=== PATIENT | female | born 1985 | race Caucasian/White ===

== ENCOUNTER 2023-09-01 08:05 | Observation (INO) | payer OTHER, SELFPAY ==
[2023-09-01] VITALS (8 sets, daily range): BP systolic 118–145; BP diastolic 72–83; PULSE 60–99; RESP 14–18; TEMP 36.2–36.6; O2SAT 98–100; BMI 26.8; BMI 26.2
--- NOTE | 2023-09-01 08:21 | CT_ITS ---
STUDY: CT ABDOMEN AND PELVIS WITH CONTRAST REASON FOR EXAM: Female, 38 years old. 3 day history of epigastric pain and abdominal bloating. RADIATION DOSAGE (If Supplied By Facility): CTDIvol = ( 12.29 ) mGy, DLP = ( 759.22 ) mGycm TECHNIQUE: Transaxial images were obtained from the dome of the diaphragm to the symphysis pubis without oral contrast. IV 100mL Isovue-300 was administered. Sagittal and coronal images were reconstructed. Individualized dose optimization techniques were used for this CT. COMPARISON: None. FINDINGS: The visualized lung bases are unremarkable. The visualized portions of the heart are within normal limits. There is a 4.5 mm well-defined hypodensity in the medial aspect of the dome of the right lobe liver suggestive of a small cyst. Similar appearing hypodensity is seen in the medial aspect of the right lobe of the liver measuring 8.4 mm. Is also evidence of a 9.2 mm cyst in the left lobe of the liver. There is a 1.1 cm cyst in the inferior aspect of the right lobe of the liver. Multiple gallstones are seen in a contracted gallbladder. There is gallbladder wall thickening. Normal spleen. Normal pancreas. Normal bilateral adrenal glands. Normal right kidney. There is a 1.1 cm x 0.7 cm nonobstructive calculus in the lower pole calyx of the left kidney. 1.2 cm cyst in the mid posterior aspect of the left kidney. Normal visualized stomach. Normal small intestine. Normal colon. The appendix is visualized and appears normal. Normal abdominal aorta. Normal inferior vena cava. Normal retroperitoneum. Normal urinary bladder. Normal abdominal wall. Normal osseous structures. CT/Abdomen/Pelvis W IV Cont ONLY IMPRESSION: There are multiple small hepatic cysts. Contracted stone filled gallbladder. 1.1 cm x 0.7 cm nonobstructive calculus in the lower pole calyx of the left kidney. Electronically Signed: Trino Dia MD at 9:54 EDT ,
--- NOTE | 2023-09-01 08:44 | ED.VIS.GI ---
HPI HPI - GI History of Present Illness Chief Complaint: Abd Pain Narrative Narrative: 38-year-old female past medical history of POTS, presents with epigastric pain that she has had over the last 3 days. She states that she does not normally eat ice cream, but Friday she and her went to the dairy at, and had ice cream. Shortly thereafter, she had epigastric pain and nausea but no vomiting. She states that radiated downward somewhat. The pain was intense. It resolved after approximately 30 to 40 minutes. However, the following day she was still nauseated. While she was able to eat today, she is having problems with reported celsa colored stool from a bowel movement this morning. It was very light. She denies any right upper quadrant pain, but states that she was drinking a lot of fluids to keep up with her POTS because she noticed she had dark urine on Friday, and she usually has clear to light yellow urine. Although she drank a large amount of water, her urine was still dark yellow. She denies any other symptoms, no exacerbating or alleviating factors. No prior abdominal surgeries. [facility] Allergy/AdvReac Type Severity Reaction Status Date / Time No Known Allergies Allergy Verified 09/01/23 08:09 Social History Smoking Status: Never smoker ROS ROS ED ROS Narrative Constitutional: No fever, no chills. HEENT: No sore throat. No neck pain. No loss of vision. No rhinorrhea. Cardiovascular: No chest pain. No palpitations. No pedal edema. Respiratory: No cough, no shortness of breath. Abdominal: Positive epigastric abdominal pain. Positive nausea. No vomiting. Light to celsa colored stools today. Genitourinary: No dysuria. No hematuria. Dark urine on Friday, still appears concentrated to patient. Musculoskeletal: No myalgias. No arthralgias. Neurologic: No headaches. No dizziness. No lightheadedness. Skin: No rash. No change in color. Psychiatric: No depression. No anxiety. EXAM Physical Exam Narrative Exam Narrative: Afebrile. Vital signs noted. HEENT: Normocephalic. Atraumatic. PERRL, EOMI. Neck soft and supple. No point tenderness or step off. Cardiovascular: Regular rate and rhythm. No murmurs, rubs, or gallops appreciated. Respiratory: No tachypnea. Lungs clear to auscultation bilaterally. Gastrointestinal: Abdomen soft, minimal tenderness in epigastrium with normoactive bowel sounds. No rebound or guarding. Negative Pimentel sign. Neurological: Awake. Alert. Nonfocal, nonlateralizing. Skin: No rash. Normal color. No pallor. Musculoskeletal: No pedal edema. Full range of motion extremities. Const Vital Signs: 09/01/23 08:07 09/01/23 10:06 09/01/23 12:00 Temperature 97.2 F L Temperature Source Temporal Pulse Rate 99 75 68 Respiratory Rate 18 14 14 Blood Pressure 127/81 H 127/77 H 137/72 H Blood Pressure Mean 96 93 93 Pulse Ox 100 98 98 Oxygen Delivery Method Room Air Room Air MDM MDM MDM Narrative Medical decision making narrative: In the differential diagnosis is pancreatitis versus gastritis versus lactose intolerance versus nonspecific abdominal pain. I have low suspicion for bowel obstruction as she has not had previous surgeries. Additionally, her pain is not in the right upper quadrant so I have low suspicion for cholecystitis or gallstone pancreatitis. Comprehensive workup was pursued. She was bolused normal saline and administered ondansetron for continued nausea. I do feel CT imaging would be more advantageous than gallbladder ultrasound to help rule out other pathology such as bowel obstruction. Laboratories will be obtained in the form of CBC, CMP, and lipase. I reviewed her laboratory work and she has normal white count of 6.8, hemoglobin normal at 14.5, hematocrit 42.7, platelet count 159. Review of her CMP shows normal sodium of 140, potassium normal at 3.7, chloride slightly elevated at 111 which I think is nonspecific, glucose elevated at 113 with a normal anion gap of 6. Of significance is her LFT portion of the CMP which shows total bilirubin elevated at 1.6 with AST of 317, ALT of 855, and alkaline phosphatase normal at 96. Serum is negative and lipase is normal at 39 so I have low suspicion for pancreatitis. Urinalysis obtained and reviewed and is negative for infection. I do not feel antibiotics are indicated. I reviewed the CT radiology report which shows a contracted gallbladder with gallbladder wall thickening, and gallstones contained within, but otherwise unremarkable except for cysts throughout the liver. I do not feel that those are the cause of her elevated LFTs, however. Because of the elevated AST and ALT and total bilirubin with a thickened gallbladder wall and gallstones, ultrasound of the right upper quadrant was obtained. I reviewed the radiology report which shows normal common bile duct of 5.8 mm. Gallbladder wall is slightly thickened at 3.2 mm. I discussed the patient with the [employer] SUPERINTENDENT who relayed messages to Dr. Howell. He has sent his MARLENI, Admify, to the emergency department to evaluate her. I received a phone call stating that they would like her admitted to Dr. Howell's service, and they will take care of any other orders. This was relayed to the patient, and she acknowledges an understanding. Disposition is admit to the medical surgical floor in stable condition. History & Record Review Discussion w/independent historian: Patient and Family () Lab Data Attestation: I reviewed the patient's lab results. Labs: Laboratory Results - last 24 hr 09/01/23 09/01/23 08:40 08:45 WBC 6.8 RBC 4.71 Hgb 14.5 Hct 42.7 MCV 90.7 MCH 30.8 MCHC 34.0 RDW Std Deviation 41.5 RDW Coeff of Delma 12.5 Plt Count 159 MPV 9.5 Immature Gran % (Auto) 0.400 Neut % (Auto) 74.7 H Lymph % (Auto) 16.7 L [place] % (Auto) 6.5 Eos % (Auto) 1.3 Baso % (Auto) 0.4 Absolute Neuts (auto) 5.0 Absolute Lymphs (auto) 1.13 Nucleated RBC % 0 Sodium 140 Potassium 3.7 Chloride 111 H Carbon Dioxide 23.0 Anion Gap 6 BUN 10 Creatinine 0.87 Estim Creat Clear Calc 93.20 Est GFR (MDRD) Af Amer 93 Est GFR (MDRD) Non-Af 77 BUN/Creatinine Ratio 11.5 Glucose 113 H Calcium 8.9 Total Bilirubin 1.60 H AST 317 H ALT 855 H Alkaline Phosphatase 96 Total Protein 7.2 Albumin 3.8 Globulin 3.4 Albumin/Globulin Ratio 1.1 Lipase 39 Serum , Qual NEGATIVE Urine Color Yellow Urine Clarity Clear Urine pH 6.5 Ur Specific [place] 1.010 Urine Protein Negative Urine Glucose (UA) Normal Urine Ketones Negative Urine Occult Blood Negative Urine Nitrite Negative Urine Bilirubin Negative Urine Urobilinogen Normal Ur Leukocyte Esterase Negative Urine RBC 0 SEEN Urine WBC 0 SEEN Ur Squamous Epith Cells 0-5 SEEN Urine Bacteria 0 SEEN Urine Mucus 0 SEEN Radiography Diagnostic Testing: Clinical Impression(s) from Imaging Studies Abdomen/Pelvis CT 09/01/23 08:21 IMPRESSION: There are multiple small hepatic cysts. Contracted stone filled gallbladder. 1.1 cm x 0.7 cm nonobstructive calculus in the lower pole calyx of the left kidney. Electronically Signed: Trino Dia MD at 9:54 EDT , Abdomen Ultrasound 09/01/23 09:20 IMPRESSION: Multiple small cysts are seen in both the right and left lobes of the liver. Multiple gallstones and slightly thickened gallbladder wall. Electronically Signed: Trino Dia MD at 12:05 EDT , Management Discussion w/another healthcare provider: Conference Interpreter (Dr. Howell/Emily YUEN) Discharge Plan Triage Chief Complaint: Abd Pain ED Provider: Karan Agosto Dx/Rx/DC Orders Primary Care Provider: Libia Villagran NP Referrals: Libia Villagran NP, DIRECTOR OF HUMAN RESOURCES-C [Primary Care Provider] -
[2023-09-01] MEDS: Ondansetron 4 MG/2 ML Vial IV (08:50)
[2023-09-01] MEDS: 0.9% Normal Saline (1000mL) 1,000 ML 1000 ML IV (08:50)
[2023-09-01 08:55] LABS: Bacteria 0 SEEN /hpf (None Seen); Mucous, Urine 0 SEEN /hpf (<or=2+); Red Blood Cells-Urine 0 SEEN /hpf (0-5); White Blood Cells 0 SEEN /hpf (0-5)
[2023-09-01 08:56] LABS: Absolute Lymphocyte Count 1.13 X10^3/uL (0.83-4.51); Basophil# 0.03 X10^3/uL; Basophil% 0.4 % (0-1); Eosinophil# 0.09 X10^3/uL; Eosinophils% 1.3 % (0-5); Hematocrit 42.7 % (37-47); Hemoglobin 14.5 g/dL (12.0-15.0); Lymphocyte # 1.13 X10^3/ul (0.83-4.51); Lymphocyte % 16.7 % (19-41); Mean Corpuscular Hgb 30.8 pg (27.0-32.0); Mean Corpuscular Volume 90.7 fL (81-99); Mean Platelet Vol. 9.5 fl (6.2-12.0); Monocyte# 0.44 X10^3/uL; Monocyte% 6.5 % (0-10); NRBC Flagged by Analyzer 0 % (0-5); Neutrophil # 5.03 X10^3/uL (2.7-7.7); Neutrophil % 74.7 % (47-70); Platelet Count 159 K/mm3 (150-450); RBC Distribution Width CV 12.5 % (11.6-14.6); RBC Distribution Width SD 41.5 fl (35.1-43.9); Red Blood Count 4.71 M/mm3 (4.2-5.4); White Blood Count 6.8 K/mm3 (4.4-11.0)
[2023-09-01 09:05] LABS: Internal QC Validated? YES +Cl - CLEAR BKGD; Pregnancy, Serum, hCG Quali. NEGATIVE Negative
[2023-09-01 09:15] LABS: Color, Urine Yellow (Yellow); Glucose, Dipstick Normal (Normal); Ketone-Dipstick Negative (Negative); Leukocyte Esterase-Dipstick Negative /ul (Negative); Nitrite-Dipstick Negative (Negative); Occult Blood-Urine Negative /ul (Negative); Protein-Dipstick Negative (Negative); Urine Bilirubin Dipstick Negative (Negative); Urine Clarity Clear (Clear); Urine Urobilinogen Normal (Normal); Urine pH 6.5 (5.0 - 8.0)
[2023-09-01 09:17] LABS: ALB/GLOB Ratio 1.1 RATIO (0.9-2.4); AST(SGOT) 317 U/L (15-37); Alanine Aminotransfer ALT/SGPT 855 U/L (13-56); Albumin, Serum 3.8 g/dL (3.2-5.0); Alkaline Phosphatase 96 U/L (45-117); Anion Gap 6 (5-15); BUN 10 mg/dL (7-18); BUN/Creat Ratio 11.5 RATIO (10-20); Calcium,Total 8.9 mg/dL (8.5-10.1); Chloride 111 mmol/L (98-107); Creatinine, Serum 0.87 mg/dL (0.55-1.02); EST Glomerular Filtration Rate 77 mL/min (>60); Est Glom Filt Rate - Afr Amer 93 mL/min (>60); Globulin 3.4 g/dL (2.2-4.2); Glucose 113 mg/dL (74-106); Lipase 39 U/L (13-75); Potassium 3.7 mmol/L (3.5-5.1); Protein, Total 7.2 g/dL (6.4-8.2); Sodium Level 140 mmol/L (136-145)
--- NOTE | 2023-09-01 09:20 | US_ITS ---
STUDY: ABDOMINAL ULTRASOUND - RIGHT UPPER QUADRANT REASON FOR VISIT: Female, 38 years old Elevated LFTs TECHNIQUE: Ultrasound evaluation of the right upper quadrant was performed with real-time and static ellison-scale imaging. TECHNICAL QUALITY: Adequate. COMPARISON: Comparison is made with prior CT scan abdomen and pelvis done earlier today. FINDINGS: Liver: The liver measures 14.4 cm. There is normal echogenicity of the liver. The bile ducts are within normal limits. There is hepatic color flow. The direction of portal flow is hepatopetal. Multiple small cysts are seen. The largest measures 1.3 cm x 1.2 cm x 0.9 cm. Gallbladder: Normal distended gallbladder. The gallbladder wall is slightly thickened and measures 3.2 mm. There is a negative sonographic Pimentel''s sign. There is no pericholecystic fluid. There are multiple echogenic structures within the gallbladder, consistent with multiple gallstones. Common Bile Duct (C.B.D.): The common bile duct measures 5.8 mm. Pancreas: Normal size of the head, body and tail of the pancreas. There is normal echogenicity of the pancreas. There is no demonstrated pancreatic mass or cyst. Right Kidney: Normal size of the right kidney. The right kidney measures 11.9 cm x 4.3 cm x 5.1 cm. Normal renal cortex. The right cortex measures 1.4 cm. There is no demonstrated renal mass or cyst. There is no right hydronephrosis. US/Abdomen Limited IMPRESSION: Multiple small cysts are seen in both the right and left lobes of the liver. Multiple gallstones and slightly thickened gallbladder wall. Electronically Signed: Trino Dia MD at 12:05 EDT ,
[2023-09-01 09:37] LABS: Squamous Epithelial Cells - UA 0-5 SEEN /hpf (5-10)
--- NOTE | 2023-09-01 12:32 | ED.RN ---
Dr Howell staff called from surgery. He asked if we could call the office and see if Emily could see the patient. Message was left.
--- NOTE | 2023-09-01 13:37 | EKG12_ITS ---
Test Reason : PRE OP Blood Pressure : / mmHG Vent. Rate : 071 BPM Atrial Rate : 071 BPM P-R Int : 134 ms QRS Dur : 078 ms QT Int : 390 ms P-R-T Axes : 064 020 057 degrees QTc Int : 423 ms Normal sinus rhythm Normal ECG Confirmed by Giovany Elizabeth ([id number]), newspaper managing editor LIAM GODOY ([id number]) on 09/02/2023 1:44:30 PM Referred By: Confirmed By:Giovany Elizabeth
--- NOTE | 2023-09-01 13:38 | HP.PCM_ITS ---
HPI - General General Date of Admission: 09/01/23 Chief Complaint: Epigastric pain HPI Narrative VERNA HASTINGS, is a 38 F who presents with 2 day history of abdominal pain and change in bowel habits. Patient states she went for ice cream on Friday evening around 6:00 pm with her . She notes approximately 1 hour after consumption, she had severe epigastric pain, which lasted approximately 30 minutes. She notes weakness, bloating and nausea associated with her abdominal pain. She is unsure if the pain radiated to either side of her abdomen. She states feeling unwell after the intense pain resolved. She notes on Friday, she had dale-colored urine. She noted her bowel movement this morning was light ellison/celsa colored, which concerned her and she proceeded to the ED. Patient continues to note bloating especially with eating. She notes intermittent nausea. Patient notes she had similar symptoms last Fall. She notes those symptoms were more mild in nature and she was never tested for gallbladder disease. Patient has a history of POTS syndrome. She notes paying particular attention to hydration and urine color. When she saw her urine was dale in color, this alarmed her that something was not right. She notes being very good at keeping herself hydrated. She does follow with a neurologist yearly. She is to follow-up with him next week. She notes being on a Gluten-free diet. She denies celiac disease, lactose intolerance or other digestive disorders. RUQ u/s completed in the ED demonstrated multiple gallstones with thickened gallbladder wall. Normal CBD. Liver enzymes: T Bili 1.60, AST 317, ALT 855. WBC 6.8. Neut 74.4. [facility] Medical History (Updated 09/01/23 @ 14:09 by Natasha Molina) POTS (postural orthostatic tachycardia syndrome) Home Medications ivabradine 5 mg tablet (Corlanor) 5 mg PO DAILY POTS 09/01/23 [History Last Taken Unknown] montelukast 10 mg tablet 10 mg PO QHS daily 09/01/23 [History Last Taken Unknown] Allergy/AdvReac Type Severity Reaction Status Date / Time No Known Allergies Allergy Verified 09/01/23 08:09 Surgical History (Updated 09/01/23 @ 14:09 by Natasha Molina) Lefor teeth removed Social History Smoking Status: Never smoker ROS Constitutional Constitutional: Reports systems reviewed and no addt'l complaints, except as documented Eyes Eyes: Reports systems reviewed and no addt'l complaints, except as documented ENT HEENT: Reports systems reviewed and no addt'l complaints, except as documented Cardiovascular Cardiovascular: Reports systems reviewed and no addt'l complaints, except as documented Respiratory/Chest Respiratory/Chest: Reports systems reviewed and no addt'l complaints, except as documented Gastrointestinal Gastrointestinal: Reports systems reviewed and no addt'l complaints, except as documented Genitourinary Genitourinary: Reports systems reviewed and no addt'l complaints, except as documented Musculoskeletal Musculoskeletal: Reports systems reviewed and no addt'l complaints, except as documented Integumentary Integumentary: Reports systems reviewed and no addt'l complaints, except as documented Neurologic Neurologic: Reports systems reviewed and no addt'l complaints, except as documented Psychiatric Psychiatric: Reports systems reviewed and no addt'l complaints, except as documented Endocrine Endocrinology: Reports systems reviewed and no addt'l complaints, except as documented Hematologic/Lymphatic Hematologic/Lymphatic: Reports systems reviewed and no addt'l complaints, except as documented Allergic/Immunologic Allergic/Immunologic: Reports systems reviewed and no addt'l complaints, except as documented Vital Signs Vital Signs Vital Signs: 09/01/23 08:07 09/01/23 10:06 09/01/23 12:00 Temperature 97.2 F L Temperature Source Temporal Pulse Rate 99 75 68 Respiratory Rate 18 14 14 Blood Pressure 127/81 H 127/77 H 137/72 H Blood Pressure Mean 96 93 93 Pulse Ox 100 98 98 Oxygen Delivery Method Room Air Room Air Weight Weight: 171 lb 1.6 oz Body Mass Index (BMI) 26.8 Physical Exam Const alert, oriented x3 and no apparent distress HEENT normocephalic and head/scalp atraumatic Eyes PERRL and EOMs intact bilaterally Neck full ROM Lymph Lymphatic: no lymphadenopathy noted Resp normal respiratory effort and clear to auscultation bilaterally Cardio regular rate and regular rhythm GI GI Narrative: Abdomen- soft, tenderness in the RUQ/epigastric region. Positive Pimentel's sign. No rebound tenderness or guarding. Auscultation: normoactive bowel sounds no CVA tenderness Back/Spine no CVA tenderness Extremity normal to inspection Skin no rashes or lesions noted Neuro no focal motor deficits and no sensory deficits noted Psych mental status grossly normal, thought process normal and cooperative Results Lab / Micro Data 09/01/23 08:40 09/01/23 08:40 Labs: Laboratory Results - last 24 hr 09/01/23 08:40: WBC 6.8, RBC 4.71, Hgb 14.5, Hct 42.7, MCV 90.7, MCH 30.8, MCHC 34.0, RDW Std Deviation 41.5, RDW Coeff of Delma 12.5, Plt Count 159, MPV 9.5, Immature Gran % (Auto) 0.400, Neut % (Auto) 74.7 H, Lymph % (Auto) 16.7 L, [place] % (Auto) 6.5, Eos % (Auto) 1.3, Baso % (Auto) 0.4, Absolute Neuts (auto) 5.0, Absolute Lymphs (auto) 1.13, Nucleated RBC % 0, Sodium 140, Potassium 3.7, Chloride 111 H, Carbon Dioxide 23.0, Anion Gap 6, BUN 10, Creatinine 0.87, Estim Creat Clear Calc 93.20, Est GFR (MDRD) Af Amer 93, Est GFR (MDRD) Non-Af 77, BUN/Creatinine Ratio 11.5, Glucose 113 H, Calcium 8.9, Total Bilirubin 1.60 H, AST 317 H, ALT 855 H, Alkaline Phosphatase 96, Total Protein 7.2, Albumin 3.8, Globulin 3.4, Albumin/Globulin Ratio 1.1, Lipase 39, Serum , Qual NEGATIVE 09/01/23 08:45: Urine Color Yellow, Urine Clarity Clear, Urine pH 6.5, Ur Specific [place] 1.010, Urine Protein Negative, Urine Glucose (UA) Normal, Urine Ketones Negative, Urine Occult Blood Negative, Urine Nitrite Negative, Urine Bilirubin Negative, Urine Urobilinogen Normal, Ur Leukocyte Esterase Negative, Urine RBC 0 SEEN, Urine WBC 0 SEEN, Ur Squamous Epith Cells 0-5 SEEN, Urine Bacteria 0 SEEN, Urine Mucus 0 SEEN Imaging Radiology Impression Abdomen/Pelvis CT 09/01/23 08:21 IMPRESSION: There are multiple small hepatic cysts. Contracted stone filled gallbladder. 1.1 cm x 0.7 cm nonobstructive calculus in the lower pole calyx of the left kidney. Electronically Signed: Trino Dia MD at 9:54 EDT , Abdomen Ultrasound 09/01/23 09:20 IMPRESSION: Multiple small cysts are seen in both the right and left lobes of the liver. Multiple gallstones and slightly thickened gallbladder wall. Electronically Signed: Trino Dia MD at 12:05 EDT , Assessment & Plan Assessment/Plan (1) Acute cholecystitis: PLAN: I have been consulted in conjunction with Dr. Howell. He will independently evaluate this patient. Dr. Howell will plan to perform a laparoscopic cholecystectomy with intraoperative cholangiogram. Procedure details, risks and benefits have been explained. We have also discussed the potential of an additional procedure, ERCP, if an obstruction is found during the cholangiogram. Patient and her have had the opportunity to ask and have questions answered. Patient verbally understands and agrees with the plan. Plan to admit patient and start on IV fluids at a higher rate secondary to POTS. Planned surgery pending OR availability. Patient is aware that surgery may not be scheduled until tomorrow pending operating room availability. Thank you for allowing us to participate in this patient's care. Charges/Coding Visit Charges OBSV E&M: 94736 Observ/hosp same date L2
[2023-09-01] MEDS: Piperacil/Tazobactam 3.375 GM in 0.9% Normal Saline (50mL MB+) 50 ML IV ×2 (14:41→22:15)
[2023-09-01] MEDS: 0.9% Normal Saline (1000mL) 1,000 ML 125 ML IV ×2 (14:42→22:17)
[2023-09-01] MEDS: Acetaminophen 325 MG Tablet 650 MG PO (20:58)
[2023-09-02] VITALS (27 sets, daily range): BP systolic 111–133; BP diastolic 67–91; PULSE 60–96; RESP 14–18; TEMP 36.2–36.9; O2SAT 93–99; BMI 27.1
[2023-09-02 05:07] LABS: HEPATITIS B SURFACE AG Negative (Negative); Hep C Antibodies Non Reactive (Non Reactive); Hepatitis A IgM Antibody Negative (Negative); Hepatitis B Core AB IgM Negative (Negative)
[2023-09-02] MEDS: Piperacil/Tazobactam 3.375 GM in 0.9% Normal Saline (50mL MB+) 50 ML IV ×3 (06:00→22:08)
[2023-09-02] MEDS: 0.9% Normal Saline (1000mL) 1,000 ML 125 ML IV ×2 (06:04→20:48)
[2023-09-02 08:10] LABS: Absolute Lymphocyte Count 1.49 X10^3/uL (0.83-4.51); Absolute Neutrophil Count 2.5 X10^3/uL (2.0-7.7); Basophil# 0.02 X10^3/uL; Basophil% 0.4 % (0-1); Eosinophil# 0.14 X10^3/uL; Eosinophils% 3.1 % (0-5); Hematocrit 41.5 % (37-47); Hemoglobin 14.1 g/dL (12.0-15.0); Lymphocyte # 1.49 X10^3/ul (0.83-4.51); Lymphocyte % 32.5 % (19-41); Mean Corpuscular Hgb 30.5 pg (27.0-32.0); Mean Corpuscular Volume 89.6 fL (81-99); Mean Platelet Vol. 8.8 fl (6.2-12.0); Monocyte# 0.42 X10^3/uL; Monocyte% 9.2 % (0-10); NRBC Flagged by Analyzer 0 % (0-5); Neutrophil # 2.49 X10^3/uL (2.7-7.7); Neutrophil % 54.4 % (47-70); Platelet Count 155 K/mm3 (150-450); RBC Distribution Width CV 12.3 % (11.6-14.6); RBC Distribution Width SD 40.1 fl (35.1-43.9); Red Blood Count 4.63 M/mm3 (4.2-5.4); White Blood Count 4.6 K/mm3 (4.4-11.0)
[2023-09-02 08:26] LABS: ALB/GLOB Ratio 1.1 RATIO (0.9-2.4); AST(SGOT) 96 U/L (15-37); Alanine Aminotransfer ALT/SGPT 530 U/L (13-56); Albumin, Serum 3.5 g/dL (3.2-5.0); Alkaline Phosphatase 77 U/L (45-117); Anion Gap 11 (5-15); BUN 6 mg/dL (7-18); BUN/Creat Ratio 8.1 RATIO (10-20); Calcium,Total 8.5 mg/dL (8.5-10.1); Chloride 111 mmol/L (98-107); Creatinine, Serum 0.74 mg/dL (0.55-1.02); EST Glomerular Filtration Rate 93 mL/min (>60); Est Glom Filt Rate - Afr Amer 113 mL/min (>60); Estimated Creatinine Clearance 110.28 ml/min; Globulin 3.3 g/dL (2.2-4.2); Glucose 98 mg/dL (74-106); Protein, Total 6.8 g/dL (6.4-8.2); Sodium Level 143 mmol/L (136-145)
--- NOTE | 2023-09-02 10:05 | PN.SURG_ITS ---
Subjective Subjective Patient evaluated this morning resting comfortably in bed. She notes her abdominal pain is improved. Objective Data Objective Data Vital Signs: Vital Signs Temp Pulse Resp BP Pulse Ox O2 Del Method 98.1 F 72 16 116/83 H 98 Room Air 09/02/23 08:11 09/02/23 08:11 09/02/23 08:12 09/02/23 08:11 09/02/23 08:11 09/02/23 08:12 Oxygen Delivery Method Room Air Weight: 173 lb 8.061 oz Body Mass Index (BMI) 27.1 Intake & Output: Intake and Output for Last 24 Hours 08/31/23 09/01/23 09/02/23 23:59 23:59 23:59 Intake Total 2397.92 / 2397.92 1022.92 / 1022.92 Balance 2397.92 / 2397.92 1022.92 / 1022.92 Lab / Micro Data 09/02/23 08:03 09/02/23 08:03 Labs: Laboratory Results - last 24 hr 09/01/23 09:40: Hepatitis A IgM Ab Negative, Hep Bs Antigen Negative, Hep B Core IgM Ab Negative, Hepatitis C Ab (EIA) Non Reactive, Hep C Ab Comment Comment 09/02/23 05:54: WBC Cancelled, Corrected WBC Cancelled, RBC Cancelled, Hgb Cancelled, Hct Cancelled, MCV Cancelled, MCH Cancelled, MCHC Cancelled, RDW Std Deviation Cancelled, RDW Coeff of Delma Cancelled, Plt Count Cancelled, MPV Cancelled, Immature Gran % (Auto) Cancelled, Neut % (Auto) Cancelled, Lymph % (Auto) Cancelled, [place] % (Auto) Cancelled, Eos % (Auto) Cancelled, Baso % (Auto) Cancelled, Absolute Neuts (auto) Cancelled, Absolute Lymphs (auto) Cancelled, Total Counted Cancelled, Neutrophils % (Manual) Cancelled, Band Neutrophils % Cancelled, Lymphocytes % (Manual) Cancelled, Monocytes % (Manual) Cancelled, Eosinophils % (Manual) Cancelled, Basophils % (Manual) Cancelled, Metamyelocytes % Cancelled, Myelocytes % Cancelled, Promyelocytes % Cancelled, Blast Cells % C ancelled, Plasma Cell % (Manual) Cancelled, Other Cells % Cancelled, Nucleated RBC % Cancelled, Nucleated RBCs/100 WBC Cancelled, Differential Comment Cancelled, Diff Path Review Cancelled, Hypersegmented Neuts Cancelled, Atypical Lymphocytes Cancelled, Reactive Lymphocytes Cancelled, Smudge Cells Cancelled, Toxic Granulation Cancelled, Toxic Vacuolation Cancelled, Dohle Bodies Cancelled, Katerine Rods Cancelled, Platelet Estimate Cancelled, Plt Morphology Comment Cancelled, RBC Morphology Cancelled 09/02/23 05:54: RBC Morphology Cancelled, Polychromasia Cancelled, Hypochromasia Cancelled, Basophilic Stippling Cancelled, Anisocytosis Cancelled, Microcytosis Cancelled, Macrocytosis Cancelled, Spherocytes Cancelled, Sickle Cells Cancelled, Target Cells Cancelled, Tear Drop Cells Cancelled, Ovalocytes Cancelled, Stomatocytes Cancelled, [place]ck Bodies Cancelled, Analilia Cells Cancelled, Bite Cells Cancelled, Crenated Cell Cancelled, Acanthocytes (Spur) Cancelled, Rouleaux Cancelled, Schistocytes Cancelled, Sodium Cancelled, Potassium Cancelled, Chloride Cancelled, Carbon Dioxide Cancelled, Anion Gap Cancelled, BUN Cancelled, Creatinine Cancelled, Estim Creat Clear Calc Cancelled, Est GFR (MDRD) Af Amer Cancelled, Est GFR (MDRD) Non-Af Cancelled, BUN/Creatinine Ratio Cancelled, Glucose Cancelled, Calcium Cancelled, Total Bilirubin Cancelled, AST Cancelled, ALT Cancelled, Alkaline Phosphatase Cancelled, Total Protein Cancelled, Albumin Cancelled, Globulin Cancelled, Albumin/Globulin Ratio Cancelled 09/02/23 08:03: WBC 4.6, RBC 4.63, Hgb 14.1, Hct 41.5, MCV 89.6, MCH 30.5, MCHC 34.0, RDW Std Deviation 40.1, RDW Coeff of Delma 12.3, Plt Count 155, MPV 8.8, Immature Gran % (Auto) 0.400, Neut % (Auto) 54.4, Lymph % (Auto) 32.5, [place] % (Auto) 9.2, Eos % (Auto) 3.1, Baso % (Auto) 0.4, Absolute Neuts (auto) 2.5, Absolute Lymphs (auto) 1.49, Nucleated RBC % 0, Sodium 143, Potassium 4.0, Chloride 111 H, Carbon Dioxide 21.0, Anion Gap 11, BUN 6 L, Creatinine 0.74, Estim Creat Clear Calc 110.28, Est GFR (MDRD) Af Amer 113, Est GFR (MDRD) Non-Af 93, BUN/Creatinine Ratio 8.1 L, Glucose 98, Calcium 8.5, Total Bilirubin 1.80 H, AST 96 H, ALT 530 H, Alkaline Phosphatase 77, Total Protein 6.8, Albumin 3.5, Globulin 3.3, Albumin/Globulin Ratio 1.1 Radiography Diagnostic Testing: Radiology Impression Abdomen Ultrasound 09/01/23 09:20 IMPRESSION: Multiple small cysts are seen in both the right and left lobes of the liver. Multiple gallstones and slightly thickened gallbladder wall. Electronically Signed: Trino Dia MD at 12:05 EDT , Physical Exam GI GI Narrative: Abdomen- soft, tenderness in the epigastric/RUQ Assessment & Plan Assessment/Plan (1) Acute cholecystitis: PLAN: I have evaluated this patient in conjunction with Dr. Howell Patient's labs were reviewed from this morning and were noted to have a discrepancy in the lab values. Patient also noted to say that she does not recall anyone coming to draw her labs from this morning. When charge nurse and patient's night nurse were spoken with, they do not recall lab going into the patient's room. Lab was contacted and it was determined that the wrong patient's labs were resulted in this patient's chart. Patient's CBC and CMP were redrawn and were in much better alignment with her previous labs from yesterday. Patient's T. Bili increased from 1.6 to 1.8 today. Both AST and ALT decreased Patient was told her correct resulted labs and was apologized to profusely. Patient will proceed to the OR with Dr. Howell for a lap mellissa this afternoon Charges/Coding Visit Charges Inpatient E&M: 02404 Subs Hosp L1 (pre-op visit)
--- NOTE | 2023-09-02 13:00 | RAD_ITS ---
CLINICAL HISTORY: Female, 38 years old. Abdominal pain PROCEDURE: CHOLANGIOGRAM - intraoperative FLUOROSCOPY TIME (if supplied): (0:32) minutes/seconds Images obtained: 4 cine run TECHNIQUE: (All elements of maximal sterile barrier technique followed, including US elements as applicable) Fluoroscopy the abdomen was utilized operating room during an intraoperative cholangiogram and for cine runs are submitted for interpretation. FINDINGS: A cannula is seen in the cystic duct remnant. Contrast is seen throughout the biliary tree with spillage through the ampulla into the duodenum. Examination, bile duct is normal without evidence of abnormal stricture, dilatation, or filling defect to suggest stone. RAD/Cholangiogram/ O R,Initial IMPRESSION: No common bile duct stone. Electronically Signed: Alfie Parada MD at 22:09 EDT ,
[2023-09-02] MEDS: Lactated Ringers 1,000 ML 15 ML IV (13:21)
--- NOTE | 2023-09-02 14:36 | OP.PCM_ITS ---
Report of Operation Date of Procedure: 09/02/23 Pre-Operative Diagnosis: Acute cholecystitis with abnormal liver function testi ng suspicious for choledocholithiasis Post-Operative Diagnosis: Cholecystitis with no evidence of choledocholithiasis Surgery/Procedure Performed:: Laparoscopic cholecystectomy with intraoperative cholangiography Description of Surgical Findings:: ? Evidence of mild acute cholecystitis ? Normal gallbladder anatomy with single cystic duct and cystic artery ? Cholangiogram showing antegrade filling of the common bile duct through the ampulla Vater into the small bowel as well as retrograde filling of the common and proper hepatic ducts without filling defect Surgeon: Giovany Howell retail parts professional: Jooã Holliday Type of Anesthesia: General/Supplemental Anesthesiologist: Michael Molina Specimen's removed: Gallbladder Estimated Blood Loss (mL): 15 Description of Procedure: After proper identification in the preoperative holding area the patient was brought to the operating room where she was positioned supine on the operating room table. Preoperatively SCDs were connected and antibiotics were administered. General anesthesia was then induced. Patient's abdomen was prepped and draped in usual sterile fashion. A formal timeout was conducted to confirm both patient and the procedure. Procedure was begun with a supraumbilical incision which was extended deeply down to the level of the fascia. The fascia was elevated and incised, as well as the peritoneum. A finger sweep was performed to ensure there were no underlying adhesions and a 12 mm balloon trocar was inserted. Pneumoperitoneum was established at 15 mmHg. Three additional trocars (all 5 mm) were placed in the epigastrium and in the right upper quadrant. Inspection of the peritoneum revealed no inadvertent injury to the viscera below. The gallbladder was visualized with a degree of mild inflammation. The gallbladder fundus was then grasped and elevated cephalad. Then, using careful dissection the peritoneum was opened and the st ructures of the hepatocystic triangle were delineated. Once the critical view of safety was obtained, the cystic duct was singly clipped and partially divided with a ductotomy. The proximal duct was milked of any debris. Using an [place] clamp, a cholangiocatheter was fed into the proximal segment of the cystic duct and clamped into place. Under fluoroscopy a cholangiogram was then obtained showing a short cystic duct flowing into a common bile duct with unobstructed antegrade flow of contrast into the duodenum. There was a double density initially between the distal common bile duct and the small bowel so additional magnified views were obtained to verify normal entry into the small bowel. There was also retrograde flow through the common hepatic duct into the right and left hepatic ducts. Satisfied with this result, the cholangiocatheter was withdrawn and the proximal cystic duct was sealed with clips and the cystic duct was completely transected. The same process was used for the cystic artery. The gallbladder was then removed from the gallbladder fossa with the use of electrocautery. At the very end of removing the gallbladder from the fossa an inadvertent rent was made in the fundal portion of the gallbladder resulting in some local spillage of bile which was promptly suctioned free of the peritoneum using the suction water plant maintenance mechanic device. Selective electrocautery was used to obtain hemostasis in the gallbladder fossa. The gallbladder was placed in an Endo Catch bag and removed from the peritoneum. Morison's pouch was irrigated and the effluent was suctioned free of the peritoneum. Hemostasis was again confirmed. Pneumoperitoneum was evacuated and the fascia of the 12 mm port sites was closed with #1Vicryl in a [id number] fashion. A total of 30 mL of anesthetic was injected at the port sites for postoperative pain control. The skin of each port site was then closed in subcuticular fashion using 4-0 Monocryl. Steri- Strips and bandages were applied as dressings. Patient tolerated the procedure well without any apparent complications. On emergence from their anesthetic the patient was taken to PACU for ongoing recovery. Complications None Admit VTE Documentation VTE Mechan Device Prophylaxis: SCD's Procedures Digestive 40xxx-49xxx: 83706 Laparo cholecystectomy/graph
[2023-09-02] MEDS: Bupivacaine Mpf 0.5% 30 ML VIAL (14:40)
[2023-09-02] MEDS: Ondansetron 4 MG/2 ML Vial IV (18:30)
[2023-09-02] MEDS: oxyCODONE 5 MG Tablet PO (20:16)
[2023-09-02] MEDS: Acetaminophen 500 MG Tablet PO (23:59)
--- NOTE | 2023-09-03 | GALL_PTH ---
PATIENT: VERNA HASTINGS LOC: MS3 U#:[id number] AGE/SX: 38/F ROOM: MO322 RE09/01/[address]: Dr. Giovany Howell MD : 1985 BED: 1 DIS: 09/03/2023 SPEC #: [id number] RECD: 09/03/23 10:44 STATUS: JOHN RAMON #: [id number] ISAURO: 09/03/23 00:[address]: Giovany Howell DEPT: SURGICAL PATHOLOGY RECD BY: Elio Montes ENTERED: 09/03/23 10:45 SP TYPE: GERARDO KEMP DR: Libia Villagran, GLOBAL IMPLEMENTATION MANAGER-C Tissues: Gallbladder, NOS Procedures: Surgery Specimen Level III HEADER OPERATION: Laparoscopic, Cholecystectomy with IOC PRE-OP DIAGNOSIS: Acute cholelithiasis TISSUE SUBMITTED: Gallbladder and contents MICROSCOPIC DIAGNOSIS Gallbladder, cholecystectomy: Chronic cholecystitis with Rokitansky-Aschoff sinuses and cholelithiasis. AM/mr 09/03 MICROSCOPIC DESCRIPTION Slides are reviewed. GROSS DESCRIPTION Received is one container labeled with the patient's name and designated gallbladder. The specimen consists of a gallbladder measuring 7.6 x 3.5 x 2.0 cm. The external surface is smooth and glistening. Focally, it is granular, hemorrhagic and contains cautery artifact. The lumen of the gallbladder contains greenish mucoid bile and multiple black calculi ranging in size from < 0.1 to 0.7cm in greatest dimension. The mucosa is bile-stained and without any mass lesions. The gallbladder wall averages 0.2 cm in thickness and is free of mass lesions. [employer] Dean sections of the gallbladder and the cystic duct at margin of resection are submitted in one cassette. / AM: 09/03/23 TC:3 CPT: 15182
[2023-09-03 01:46] VITALS: BP 130/83; PULSE 65; RESP 15; TEMP 37; O2SAT 98
--- NOTE | 2023-09-03 03:01 | NURSING ---
0200: PT C/O FEELING FULL. VSS. PT HAS BEEN AMBULATING SEVERAL TIMES TONIGHT IN ROOM AND TO THE BATHROOM. BS MORE ACTIVE AT THIS TIME, SOME BELCHING NOTED. BLADDER SCANNED PT AND NOTED AT 180 CC. DISCONTINUED MAINTENANCE IV FLUIDS AT THIS TIME. WILL CONTINUE TO MONITOR. *NOTED THAT PATIENT IS CURRENTLY ON HER MENSES* WHICH MAY BE CONTRIBUTING TO HER SENSATION OF FEELING FULL/BLOATED.
[2023-09-03] MEDS: oxyCODONE 5 MG Tablet PO ×2 (03:34→10:38)
[2023-09-03 06:00] VITALS: BMI 27.1
[2023-09-03 06:26] VITALS: BP 125/79; PULSE 71; RESP 15; TEMP 37.1; O2SAT 96
[2023-09-03] MEDS: Piperacil/Tazobactam 3.375 GM in 0.9% Normal Saline (50mL MB+) 50 ML IV (06:35)
[2023-09-03 07:42] LABS: Absolute Lymphocyte Count 1.65 X10^3/uL (0.83-4.51); Absolute Neutrophil Count 8.9 X10^3/uL (2.0-7.7); Basophil# 0.03 X10^3/uL; Basophil% 0.3 % (0-1); Eosinophil# 0.05 X10^3/uL; Eosinophils% 0.4 % (0-5); Hematocrit 39.1 % (37-47); Hemoglobin 13.3 g/dL (12.0-15.0); Lymphocyte # 1.65 X10^3/ul (0.83-4.51); Lymphocyte % 14.2 % (19-41); Mean Corpuscular Hgb 30.7 pg (27.0-32.0); Mean Corpuscular Volume 90.3 fL (81-99); Mean Platelet Vol. 9.4 fl (6.2-12.0); Monocyte# 0.92 X10^3/uL; Monocyte% 7.9 % (0-10); NRBC Flagged by Analyzer 0 % (0-5); Neutrophil # 8.92 X10^3/uL (2.7-7.7); Neutrophil % 76.9 % (47-70); Platelet Count 166 K/mm3 (150-450); RBC Distribution Width CV 11.9 % (11.6-14.6); RBC Distribution Width SD 39.8 fl (35.1-43.9); Red Blood Count 4.33 M/mm3 (4.2-5.4); White Blood Count 11.6 K/mm3 (4.4-11.0)
[2023-09-03 08:05] VITALS: O2SAT 95
[2023-09-03 08:06] LABS: AST(SGOT) 51 U/L (15-37); Alanine Aminotransfer ALT/SGPT 379 U/L (13-56); Albumin, Serum 3.3 g/dL (3.2-5.0); Alkaline Phosphatase 70 U/L (45-117); Anion Gap 6 (5-15); BUN 7 mg/dL (7-18); Calcium,Total 8.4 mg/dL (8.5-10.1); Chloride 112 mmol/L (98-107); EST Glomerular Filtration Rate 99 mL/min (>60); Est Glom Filt Rate - Afr Amer 120 mL/min (>60); Estimated Creatinine Clearance 116.51 ml/min; Globulin 3.2 g/dL (2.2-4.2); Glucose 121 mg/dL (74-106); Potassium 3.6 mmol/L (3.5-5.1); Protein, Total 6.5 g/dL (6.4-8.2); Sodium Level 140 mmol/L (136-145)
[2023-09-03] MEDS: Acetaminophen 500 MG Tablet PO (08:09)
[2023-09-03 08:15] VITALS: PULSE 80
[2023-09-03 10:39] VITALS: BP 135/81; PULSE 73; RESP 18; TEMP 37.1; O2SAT 94
--- NOTE | 2023-09-03 11:38 | DS.PCM_ITS ---
Providers Date of Admission: 09/01/23 Primary Care Physician: DESTINEE Bhagat Reason For Visit: ABD PAIN Diagnosis Discharge Diagnosis (1) Acute cholecystitis: Status: Acute Code(s): K81.0 - Acute cholecystitis Plan: I have evaluated this patient in conjunction with Dr. Howell Patient's labs were reviewed from this morning and were noted to have a discrepancy in the lab values. Patient also noted to say that she does not recall anyone coming to draw her labs from this morning. When charge nurse and patient's night nurse were spoken with, they do not recall lab going into the patient's room. Lab was contacted and it was determined that the wrong patient's labs were resulted in this patient's chart. Patient's CBC and CMP were redrawn and were in much better alignment with her previous labs from yesterday. Patient's T. Bili increased from 1.6 to 1.8 today. Both AST and ALT decreased Patient was told her correct resulted labs and was apologized to profusely. Patient will proceed to the OR with Dr. Howell for a lap mellissa this afternoon Medications at Discharge Home Medications ivabradine 5 mg tablet (Corlanor) 5 mg PO DAILY POTS 09/01/23 montelukast 10 mg tablet 10 mg PO QHS daily 09/01/23 acetaminophen 500 mg tablet 500 mg PO Q6H PRN PRN Pain 1-10 Or Fever #0 tabs 09/03/23 oxycodone 5 mg tablet 5 mg PO Q6H PRN PRN SEVPAIN 3 days #9 tabs 09/03/23 Hospital Course Operations cholecystecomy (with IOC) Summary of Care Provided Minutes Spent on Discharge: 30 Hospital Course: Patient is a 38 y/o F who presented with upper abdominal pain especially in the RUQ. RUQ u/s positive for acute cholecystitis. Dr. Howell performed a laparoscopic cholecystectomy with IOC on 09/02/23. Patient tolerated the procedure well. Patient had an uneventful hospitalization. Upon discharge, patient noted soreness at the umbilical incision. She denies nausea, vomiting, fever. She notes pain seems to be well controlled. She is tolerating a regular diet. She will follow-up with our office in 10-14 days. Physical Exam GI GI Narrative: Abdomen- soft, generalized tenderness near the incision sites, hypoactive bowel sounds. Weight / BMI Weight Weight: 173 lb 4.533 oz Body Mass Index (BMI) 27.1 ABG / Lab / Microbiology Data 09/03/23 07:21 09/03/23 07:21 Laboratory: Laboratory Results - last 24 hr 09/03/23 07:21: WBC 11.6 H, RBC 4.33, Hgb 13.3, Hct 39.1, MCV 90.3, MCH 30.7, MCHC 34.0, RDW Std Deviation 39.8, RDW Coeff of Delma 11.9, Plt Count 166, MPV 9.4, Immature Gran % (Auto) 0.300, Neut % (Auto) 76.9 H, Lymph % (Auto) 14.2 L, [place] % (Auto) 7.9, Eos % (Auto) 0.4, Baso % (Auto) 0.3, Absolute Neuts (auto) 8.9 H, Absolute Lymphs (auto) 1.65, Nucleated RBC % 0, Sodium 140, Potassium 3.6, Chloride 112 H, Carbon Dioxide 22.0, Anion Gap 6, BUN 7, Creatinine 0.70, Estim Creat Clear Calc 116.51, Est GFR (MDRD) Af Amer 120, Est GFR (MDRD) Non-Af 99, BUN/Creatinine Ratio 10.0, Glucose 121 H, Calcium 8.4 L, Total Bilirubin 1.40 H, AST 51 H, ALT 379 H, Alkaline Phosphatase 70, Total Protein 6.5, Albumin 3.3, Globulin 3.2, Albumin/Globulin Ratio 1.0 Radiography Diagnostic Testing: Radiology Impression Cholangiogram 09/02/23 13:00 IMPRESSION: No common bile duct stone. Electronically Signed: Alfie Parada MD at 22:09 EDT , D/C Instructions Discharge Diet: Light diet - advance as tolerated Discharge Activity: May Not Drive (while taking narcotic pain medication) May shower in (days): 1 Lifting Restrictions: 15 pounds for 2-3 weeks Call your doctor if your incision/area has: Continuous Slow Oozing, Sudden Increased Bleeding, Increased Pain/ Swelling, Increased Redness, Foul Smelling Discharge and Swelling at the incision site Call your doctor if you observe: Fever of 101 or Higher Suture Line Care: Avoid Pulling/Pushing and Avoid Pinching/Bending Remove Dressing in: 1 day Please Follow Up With: Giovany Howell MD When: Please contact our office to schedule a post-op appointment for 10-14 days following your surgery at [phone] Meaningful Use Info Meaningful Use Diagnoses (Choose all that apply): None applicable Discharge Plan Admission Admit Date/Time: 09/01/23 13:32 Primary Reason for Your Visit: Cholecystitis with abnormal liver function testing Attending Provider: Giovany Howell Primary Care Provider: Libia Villagran NP Instructions Additional Instructions / Restrictions: Cholecystectomy Diet ? Start light with soups and soft bland foods. You may advance diet as tolerated. Activity ? You may drive in 3-5 days but not while taking narcotic pain medication. ? I encourage walking. You may go up steps, one at a time. ? Do not swim or use hot tubs for 2 weeks. ? For comfort, you may use warm compresses (heating pad) or ice as needed for 15-20 minutes at a time. Lifting ? You may lift up to 15 pounds for 2-3 weeks. Dressings/Incision ? Do NOT tub bathe for 1 week ? Leave plastic dressings on for 1 additional day. ? When plastic dressings are removed, you will find steri strips. It is okay to continue showering with them in place, pat them dry. ? You may remove steri-strips after 1 week. We recommend getting them soaking wet for easier removal. Medications ? Anesthesia used during surgery and pain medications may cause constipation. I recommend initiating a fiber supplement like, Metamucil, Citrucel, FiberCon, Benefiber, or a generic form of these medications. One (1) heaping tablespoon in water daily. You may continue to utilize any bowel regimen or oral laxatives that you routinely take. If you are constipated, I recommend Miralax, one (1) tablespoon mixed in water once daily until constipation has resolved. ? As long as you are not intolerant to Tylenol (500 mg every 6 hours as needed for pain) or acetaminophen, ibuprofen (take 3 tablets every 8 hours as needed fo r pain) or Motrin, Advil, Aleve, or similar medications, I would recommend trans itioning to these [id number]-[id number] medicines as soon as possible instead of continued use of narcotic pain medication. Follow up ? You should call [facility] soon after surgery, at [phone] option 1 to make a follow up appointment for 10-14 days after your surgery. Discharge Orders/Prescriptions Prescriptions: New acetaminophen 500 mg Tablet 500 mg PO Q6H PRN PRN (Reason: Pain 1-10 Or Fever) Qty: 0 0RF oxycodone 5 mg Tablet 5 mg PO Q6H PRN PRN (Reason: SEVPAIN) 3 Days Qty: 9 0RF Continued montelukast 10 mg tablet 10 mg PO QHS Corlanor 5 mg tablet 5 mg PO DAILY Rx Instructions: must administer with a meal/food Referrals / Follow Up: Giovany Howell MD [Med Staff - Active Staff] - Libia Villagran NP, COMMERCIAL PEST CONTROL TECHNICIAN-C [Primary Care Provider] - Disposition Disposition (needs filled in before D/C Order can be placed): Home, Self Care Charges/Coding Visit Charges Inpatient E&M: 81381 Disch Hosp (No charge; post-op)
--- NOTE | 2023-09-03 12:17 | PHA.DC_ITS ---
Pharmacy [facility] has performed discharge medication reconciliation and counseling for this patient. 1. OXYCODONE 5MG PO Q6H PRN PAIN 7-10 The patient's discharge medication list was reviewed for discrepancies and discrepancies were resolved. The patient was counseled on the following discharge medications and changes in medications for homegoing were reviewed. The Reason for Use, instructions for use, and potential side effects were reviewed for all new medications. The patient's questions regarding all of their medications were answered. The patient was able to verbally demonstrate an understanding of their discharge medications. Medications at Discharge Home Medications ivabradine 5 mg tablet (Corlanor) 5 mg PO DAILY POTS 09/01/23 montelukast 10 mg tablet 10 mg PO QHS daily 09/01/23 acetaminophen 500 mg tablet 500 mg PO Q6H PRN PRN Pain 1-10 Or Fever #0 tabs 09/03/23 oxycodone 5 mg tablet 5 mg PO Q6H PRN PRN SEVPAIN 3 days #9 tabs 09/03/23
== END 2023-09-03 13:50 | disposition home or self-care (01) ==
LOC: ED 08:32 → MS3 14:08
PROVIDERS: Admitting Provider Surgery; Emergency Provider Emergency Medicine; PCP Registered Nurse; Visit Provider Surgery
PROC: (CPT 47610; principal; 2023-09-02 13:40)
DX: K80.12 Calculus of gallbladder with acute and chronic cholecystitis without obstruction (principal); K76.89 Other specified diseases of liver; R73.9 Hyperglycemia, unspecified; I49.8 Other specified cardiac arrhythmias; K82.8 Other specified diseases of gallbladder
CPT/HCPCS: 47563; 00790; 36415; 74177; 74300; 76000; 76705; 80053; 80074; 81001; 83690; 84703; 85025; 88304; 93005; 94668; 96361; 96365; 96366; 96375; 96376; 97802; 99221; 99284; J7030; J7120; Q9967; A4216; G0378; J2405

== ENCOUNTER → 2023-09-12 | Outpatient (CLI) | payer OTHER, SELFPAY ==
[2023-09-12 15:17] LABS: ALB/GLOB Ratio 1.1 RATIO (0.9-2.4); AST(SGOT) 14 U/L (15-37); Alanine Aminotransfer ALT/SGPT 50 U/L (13-56); Albumin, Serum 3.9 g/dL (3.2-5.0); Alkaline Phosphatase 68 U/L (45-117); Anion Gap 5 (5-15); BUN 14 mg/dL (7-18); BUN/Creat Ratio 17.5 RATIO (10-20); Calcium,Total 9.1 mg/dL (8.5-10.1); Chloride 107 mmol/L (98-107); EST Glomerular Filtration Rate 85 mL/min (>60); Est Glom Filt Rate - Afr Amer 102 mL/min (>60); Globulin 3.6 g/dL (2.2-4.2); Glucose 96 mg/dL (74-106); Potassium 3.5 mmol/L (3.5-5.1); Protein, Total 7.5 g/dL (6.4-8.2); Sodium Level 139 mmol/L (136-145)
== END | disposition home or self-care (01) ==
LOC: LAB 14:04
PROVIDERS: PCP Registered Nurse; Referring Provider Surgery; Visit Provider Surgery
DX: Z90.49 Acquired absence of other specified parts of digestive tract (principal)
CPT/HCPCS: 36415; 80053